=== PATIENT | male | born 1950 | race Caucasian/White ===

== ENCOUNTER 2019-10-15 12:42 | Emergency (ER) | payer OTHER, MEDICARE, BC ==
[2019-10-15] MEDS ORDERED: FENTANYL CITRATE INJ/PF 100 MCG/2 ML AMPUL IM ONE ×2 (12:45→14:00)
[2019-10-15] MEDS ORDERED: ONDANSETRON HCL INJ/PF 4 MG/2 ML SDV IV ONE ×3 (12:45→17:28)
[2019-10-15] MEDS ORDERED: KETOROLAC TROMETHAMINE INJ/PF 30 MG/1 ML SDV IV ONE ×2 (12:45→14:00)
[2019-10-15] MEDS ORDERED: NORMAL SALINE 1000 ML 1,000 ML IV ONE (12:45)
--- NOTE | 2019-10-15 12:47 | ER Document Report ---
ED Medical Screen (RME) - General Chief Complaint: Flank Pain Stated Complaint: FLANK PAIN, BACK PAIN Time Seen by Provider: 10/15/19 12:44 - HPI Notes: 10/15/19 12:45 I had to go outside to help assist patient into wheelchair and into the emergency department. Patient is complaining of severe right flank pain that radiates around to his right lower abdomen that began 2 days ago. He does have associated nausea and vomiting. Patient states that the pain did go away, but returned. Denies drug allergies. No fever, chest pain, shortness of breath. I have treated and performed a rapid initial assessment of this patient. A comprehensive ED assessment and evaluation of the patient, analysis of test results and completion of medical decision making process will be conducted by additional ED providers. Toradol to be given after CT imaging. PHYSICAL EXAMINATION: GENERAL: No acute respiratory distress. Patient is unable to sit still and is holding his right flank in the wheelchair and tearful. Abdomen/back: Limited exam in triage, tenderness noted right lower abdomen into the right flank/low back area.
[2019-10-15] MEDS ORDERED: HYDROMORPHONE HCL INJ/PF 2 MG/ML AMPULE IV ONE (12:52)
--- NOTE | 2019-10-15 13:04 | ER Document Report ---
ED GI/ - General Chief Complaint: Flank Pain Stated Complaint: FLANK PAIN, BACK PAIN Time Seen by Provider: 10/15/19 12:44 Primary Care Provider: JUNE GUAJARDO MD [NO LOCAL MD] - Follow up tomorrow Information source: Patient Notes: Patient presents with right flank pain that radiates to the right side abdomen for the past 2 days. Patient does state that the pain makes him nauseous and banerjee s had vomiting. Patient denies any fever. Patient denies any previous history of kidney stones. - HPI Patient complains to provider of: Abdominal pain, Flank pain Onset: Yesterday Timing/Duration: Worse Quality of pain: Sharp Pain Level: 5 Location: RLQ, Right flank Associated symptoms: Nausea, Vomiting. denies: Dysuria, Fever, Urinary hesitancy, Urinary frequency, Urinary retention, Urinary urgency Exacerbated by: Denies Relieved by: Denies Similar symptoms previously: No Recently seen / treated by doctor: No - Related Data Allergies/Adverse Reactions: No Known Allergies Allergy (Unverified 10/15/19 14:03) Past Medical History - General Information source: Patient - Social History Smoking Status: Never Smoker Frequency of alcohol use: None Drug Abuse: None Occupation: None Lives with: Spouse/Significant other Family History: Reviewed & Not Pertinent - Past Medical History Cardiac Medical History: Reports: Hx Hypercholesterolemia, Hx Hypertension GI Medical History: Reports: Hx Gastroesophageal Reflux Disease Surgical Hx: Negative Review of Systems - Review of Systems Constitutional: No symptoms reported. denies: Fever, Recent illness EENT: No symptoms reported Cardiovascular: No symptoms reported Respiratory: No symptoms reported Gastrointestinal: Abdominal pain, Nausea, Vomiting. denies: Diarrhea Genitourinary: Flank pain Male Genitourinary: No symptoms reported Musculoskeletal: No symptoms reported Skin: No symptoms reported Hematologic/Lymphatic: No symptoms reported Neurological/Psychological: No symptoms reported Physical Exam - Vital signs Vitals: Temp Pulse Resp BP Pulse Ox 97.5 F 91 28 H 158/83 H 98 10/15/19 12:56 10/15/19 12:56 10/15/19 12:56 10/15/19 12:56 10/15/19 12:56 - General General appearance: Alert, Anxious In distress: Moderate - HEENT Head: Normocephalic, Atraumatic Eyes: Normal Nasal: Normal Mouth/Lips: Normal Neck: Normal, Supple - Respiratory Respiratory status: No respiratory distress Chest status: Nontender Breath sounds: Normal. No: Rales, Rhonchi, Stridor, Wheezing Chest palpation: Normal - Cardiovascular Rhythm: Regular Heart sounds: S1 appreciated, S2 appreciated - Abdominal Inspection: Normal Distension: No distension Tenderness: Tender - right side. No: McBurney's point Organomegaly: No organomegaly - Back Back: CVA tenderness - right - Extremities General upper extremity: Normal inspection, Normal strength General lower extremity: Normal inspection, Normal strength - Neurological Neuro grossly intact: Yes Cognition: Normal [place] Coma Scale Eye Opening: Spontaneous [place] Coma Scale Verbal: Oriented [place] Coma Scale Motor: Obeys Commands [place] Coma Scale Total: 15 - Psychological Associated symptoms: Normal affect, Normal mood - Skin Skin Temperature: Warm Skin Moisture: Dry Skin Color: Normal Course - Re-evaluation Re-evalutation: 10/15/19 15:44 Patient with 8 mm ureteral stone on the right side. Patient advised that this is of a significant size that he will likely not be able to pass and will need to have urology follow-up. Patient encouraged to call the urology office [facility] for follow-up appointment. Patient without any fever, leukocytosis, UTI or impaired renal function at this time. Discussed with patient at length worsening symptoms that he should return immediately for including fever, vomiting, uncontrollable pain, any signs of infection or other worrisome symptoms. Patient is agreeable with discharge at this time and verbalized understanding instructions. Patient's at bedside as well who verbalized understanding of instructions. Patient advised that he will need some type of intervention to help with his stone and that this needs to be done in a timely manner although does not require emergent transfer tonight. 10/15/19 16:00 Patient reports that pain has started to return and would like additional medication at this time. 10/15/19 17:27 Patient states that pain continues and he is nauseated at this time. Patient is being difficulty managing pain symptoms at this time. Call placed to [facility] for consultation with urology. 10/15/19 17:[address] Guajardo who is on for urology at [facility] who recommends giving patient IV acetaminophen and pain and a KUB to help guide treatment as to whether or not he may be a lithotripsy candidate. Dr. Guajardo would like to have patient evaluated in his office at 9 AM tomorrow if patient is comfortable with discharge. If patient's pain is not improved after the IV acetaminophen then we can call back and he consider transfer at that time. 10/15/19 18:51 RN states that patient initially refused the IV acetaminophen but is now agreeable. Medication has been reordered at this time. - Vital Signs Vital signs: Temp Pulse Resp BP Pulse Ox 98.3 F 93 16 145/79 H 93 10/15/19 19:28 10/15/19 19:28 10/15/19 19:28 10/15/19 19:28 10/15/19 19:28 - Laboratory Result Diagrams: 10/15/19 13:20 10/15/19 13:20 Laboratory results interpreted by me: 10/15/19 10/15/19 10/15/19 13:20 13:20 14:50 RDW 14.3 H Est GFR (MDRD) Non-Af 59 L Glucose 127 H Total Bilirubin 2.0 H Urine Protein 30 H Urine Ketones 20 H Urine Blood LARGE H Labs- Entire Visit 10/15/19 10/15/19 10/15/19 13:20 13:20 14:50 WBC 8.1 RBC 5.41 Hgb 16.0 Hct 45.5 MCV 84 MCH 29.6 MCHC 35.1 RDW 14.3 H Plt Count 278 Lymph % (Auto) 26.9 [place] % (Auto) 7.3 Eos % (Auto) 1.7 Baso % (Auto) 0.5 Absolute Neuts (auto) 5.1 Absolute Lymphs (auto) 2.2 Absolute Monos (auto) 0.6 Absolute Eos (auto) 0.1 Absolute Basos (auto) 0.0 Seg Neutrophils % 63.6 Sodium 143.1 Potassium 4.0 Chloride 102 Carbon Dioxide 25 Anion Gap 16 BUN 20 Creatinine 1.23 Est GFR ( Amer) > 60 Est GFR (MDRD) Non-Af 59 L Glucose 127 H Calcium 9.7 Total Bilirubin 2.0 H Direct Bilirubin 0.1 Neonat Total Bilirubin Not Reportable Neonat Direct Bilirubin Not Reportable Neonat Indirect Bili Not Reportable AST 27 ALT 30 Alkaline Phosphatase 65 Total Protein 7.9 Albumin 4.8 Lipase 98.4 Urine Color ZULEYMA Urine Appearance SLIGHTLY-CLOUDY Urine pH 6.0 Ur Specific [place] 1.024 Urine Protein 30 H Urine Glucose (UA) NEGATIVE Urine Ketones 20 H Urine Blood LARGE H Urine Nitrite (Reflex) NEGATIVE Urine Bilirubin NEGATIVE Urine Urobilinogen NEGATIVE Leukocyte Esterase Rfl NEGATIVE Urine RBC (Auto) 176 Squamous Epi Cells Auto <1 Urine Mucus (Auto) MANY Urine Ascorbic Acid NEGATIVE - Diagnostic Test Radiology reviewed: Reports reviewed Discharge - Discharge Clinical Impression: Flank pain, Ureteral stone Condition: Stable Disposition: HOME, SELF-CARE Additional Instructions: Return immediately for any new or worsening symptoms: Fever, vomiting, uncontrollable pain or any concerning symptoms Follow-up with urology tomorrow in his [place] office at 9 am. Let office staff note that we spoke with urologist over the phone and you were given this time slot verbally. KIDNEY STONE: You are passing or have passed a kidney stone. These stones are usually due to increased calcium or uric acid concentrations in your urine. Stones within the kidney itself are not painful. The pain occurs as the stone leaves the kidney to pass down the long tube, called the ureter, leading to the bladder. If the stone is small, it will usually pass by itself. Most patients can pass the stone at home. You will usually receive medications for pain, nausea or vomiting, and sometimes a medication to assist in passing the kidney stone. However, if the pain is very severe or if vomiting prevents you from taking oral pain medications, you may need to return for further treatment. Drink three or four quarts of fluids per day. You will be given pain medication (if needed) and urine strainers. Strain all your urine to see if the stone passes. If your doctor has asked you to bring the stone in for analysis, return with the stone once it has passed. Return if pain or vomiting become severe, if you develop a high fever, if you are unable to pass your urine, or if other unusual symptoms occur. TORADOL INJECTION: You have been given an injection of ketorolac tromethamine (Toradol). This is an excellent, safe drug for pain control. It also has potent antiinfla mmatory action. You should have significant pain relief within about one hour. Toradol is not addicting and is non-sedating. It does not interfere with driving or work. Call or return if you develop itching, hives, shortness of breath, or rash. PAIN MEDICATION INJECTION: You have received an injection of a pain medication. You should experience significant pain relief within 45 minutes. This drug is a narcotic -- it will impair your judgement, slow your reaction time and make you sleepy (as well as relieve your pain). Narcotics also can cause nausea. You should not drive, work with machinery, or perform any task requiring mental alertness until all effects of the medication are gone -- six to eight hours. Do not take any alcohol, or sedatives, and do not take any other medication without checking with your physician. ANTINAUSEA MEDICATION: You have been given a medication to suppress nausea and vomiting. This type of medication can be given as a shot, pill, or suppository. It will usually last for many hours. Pills and shots usually last six to eight hours, suppositories last about 12 hours. For the typical illness, only one or two doses of the medication may be necessary. Mild lightheadedness may occur. This type of medicine can cause d rowsiness. Do not drive or operate dangerous machinery while under its influence. Do not mix with alcohol. See your doctor at once if you have muscle spasms or tightness, or uncontrollable motions (particularly of the neck, mouth, or jaw). Persistent vomiting or severe lightheadedness should also be evaluated by the physician. ORAL NARCOTIC MEDICATION: You have been given a prescription for pain control. This medication is a narcotic. It's best taken with food, as nausea can result if taken on an empty stomach. Don't operate machinery or drive within six hours of taking this medication. Do not combine this medicine with alcohol, or with any medication which can cause sedation (such as cold tablets or sleeping pills) unless you get permission from the physician. Narcotics tend to cause constipation. If possible, drink plenty of fluids and eat a diet high in fiber and fruits. Please be aware that prescription narcotics also have the potential for abuse. People become addicted to these medications because of the general sense of wellbeing that they induce. This feeling along with a significant reduction in tension, anxiety, and aggression provides a stimulating seductive quality to these drugs. Once your pain is under control, we encourage you to discard your unused narcotics. FLOMAX (tamsulosin): Flomax is a medicine that shrinks the prostate gland. It helps relieve symptoms of benign prostatic hypertrophy, such as frequent urination, weak stream, and inadequate emptying. It has been shown to dilate the ureter (tube leading from the kidney to the bladder) and help in passing kidney stones Flomax usually causes no side effects. You may notice slight tiredness and dizziness for a few days. Some patients develop nasal congestion. Rarely, impotence can occur. If the symptoms are bothersome and don't improve with continued use, call your doctor. Contact your doctor or return if you have fainting spells, severe weakness or dizziness, shortness of breath, or rash. FOLLOW-UP CARE: If you have been referred to a physician for follow-up care, call the physicians office for an appointment as you were instructed or within the next two days. If you experience worsening or a significant change in your symptoms, notify the physician immediately or return to the Emergency Department at any time for re-evaluation. Prescriptions: Oxycodone HCl/Acetaminophen [Percocet 5-325 mg Tablet] 1 tab PO ASDIR PRN #20 tablet PRN Reason: Ondansetron HCl [Zofran 4 mg Tablet] 1 - 2 tab PO Q6 PRN #15 tablet PRN Reason: Referrals: JUNE GUAJARDO MD [NO LOCAL MD] - Follow up tomorrow
[2019-10-15] MEDS ORDERED: ONDANSETRON HCL INJ/PF 4 MG/2 ML SDV ONE ×2 (13:14→13:16)
[2019-10-15 13:44] LABS: ABSOLUTE EOSINOPHILS # (AUTO) 0.1 10^3/uL (0.0-0.6); ABSOLUTE LYMPHOCYTES (AUTO) 2.2 10^3/uL (0.5-4.7); ABSOLUTE MONOCYTES (AUTO) 0.6 10^3/uL (0.1-1.4); ABSOLUTE NEUT (AUTO) 5.1 10^3/uL (1.7-8.2); BASOPHILS % (AUTO) 0.5 % (0-2); EOSINOPHILS % (AUTO) 1.7 % (0-6); HEMATOCRIT 45.5 % (37.9-51.0); LYMPHOCYTES % (AUTO) 26.9 % (13-45); MEAN CORPUSCULAR HEMOGLOBIN 29.6 pg (27.0-33.4); MEAN CORPUSCULAR HGB CONC 35.1 g/dL (32.0-36.0); MEAN CORPUSCULAR VOLUME 84 fl (80-97); MONOCYTES % (AUTO) 7.3 % (3-13); PLATELET COUNT 278 10^3/uL (150-450); RED BLOOD COUNT 5.41 10^6/uL (4.35-5.55); RED CELL DISTRIBUTION WIDTH 14.3 % (11.5-14.0); SEGMENTED NEUTROPHILS % (AUTO) 63.6 % (42-78); TOTAL CELLS COUNTED % (AUTO) 100 %; WHITE BLOOD COUNT 8.1 10^3/uL (4.0-10.5)
--- NOTE | 2019-10-15 13:46 | RADIOLOGY REPORT (SQ) ---
EXAM DESCRIPTION: CT ABD/PELVIS NO ORAL OR IV COMPLETED DATE/TIME: 10/15/2019 1:26 pm REASON FOR STUDY: severe rt flank pain COMPARISON: None. TECHNIQUE: CT scan of the abdomen and pelvis performed without intravenous or oral contrast. Images reviewed with lung, soft tissue, and bone windows. Reconstructed coronal and sagittal MPR images revi ewed. All images stored on PACS. All CT scanners at this facility use dose modulation, iterative reconstruction, and/or weight based d osing when appropriate to reduce radiation dose to as low as reasonably achievable (ALARA). [facility]: Dose Right [facility]: CareDose [facility]: Dose Right [facility]: Teradose 4D [facility]: [employer] RADIATION DOSE: CT Rad equipment meets quality standard of care and radiation dose reduction techniq ues were employed. CTDIvol: 10.6 mGy. DLP: 611 mGy-cm.mGy. LIMITATIONS: None. FINDINGS: LOWER CHEST: Hiatal hernia. NON-CONTRASTED LIVER, SPLEEN, ADRENALS: Evaluation limited by lack of IV contrast. No identified sign ificant masses. PANCREAS: No masses. No peripancreatic inflammatory changes. GALLBLADDER: No identified stones by CT criteria. No inflammatory changes to suggest cholecystitis. RIGHT KIDNEY AND URETER: No suspicious masses. Assessment limited by lack of IV contrast. 8 mm maxi mum diameter right ureteral calculus at the level of L3- 4. This measures approximately 1,200 HU. Mild hydronephrosis. LEFT KIDNEY AND URETER: No suspicious masses. Assessment limited by lack of IV contrast. No signifi cant calcifications. No hydronephrosis or hydroureter. AORTA AND RETROPERITONEUM: No aneurysm. No retroperitoneal masses or adenopathy. BOWEL AND PERITONEAL CAVITY: Sigmoid diverticulosis. No obvious masses or inflammatory changes. No f ree fluid. APPENDIX: Normal. PELVIS, BLADDER, AND ABDOMINAL WALL:No abnormal masses. No free fluid. Bladder normal. BONES: No significant findings. OTHER: No other significant finding. IMPRESSION: 8 mm stone right ureter. Mild hydronephrosis. COMMENT: Quality ID # [id number]: Final reports with documentation of one or more dose reduction techniques (e.g., Automated exposure control, adjustment of the mA and/or kV according to patient size, use of iterative reconstruction technique) TECHNICAL DOCUMENTATION: JOB ID: [id number] [employer]- All Rights Reserved Reading location - IP/workstation name: [email or web address]
[2019-10-15 14:04] LABS: ALBUMIN 4.8 g/dL (3.5-5.0); ALKALINE PHOSPHATASE 65 U/L (38-126); ANION GAP 16 (5-19); ASPARTATE AMINO TRANSFERASE 27 U/L (17-59); BILIRUBIN,DIRECT 0.1 mg/dL (0.0-0.4); BLOOD UREA NITROGEN 20 mg/dL (7-20); CALCIUM 9.7 mg/dL (8.4-10.2); CARBON DIOXIDE 25 mmol/L (22-30); CHLORIDE 102 mmol/L (98-107); GLUCOSE 127 mg/dL (75-110); TOTAL PROTEIN 7.9 g/dL (6.3-8.2)
[2019-10-15 15:12] LABS: APPEARANCE,URINE SLIGHTLY-CLOUDY; BILIRUBIN,URINE NEGATIVE (NEGATIVE); COLOR,URINE AMBER; GLUCOSE, URINE NEGATIVE (NEGATIVE); KETONES,URINE 20 mg/dL (NEGATIVE); PROTEIN,URINE 30 mg/dL (NEGATIVE); URINE SPECIFIC GRAVITY 1.024; UROBILINOGEN,URINE NEGATIVE mg/dL (<2.0)
[2019-10-15] MEDS ORDERED: MORPHINE SULFATE 10 MG/ML INJ IV ONE (16:05)
[2019-10-15] MEDS ORDERED: ACETAMINOPHEN 1,000 MG/100 ML RTUPB IV ONE ×2 (17:55→18:50)
[2019-10-15] MEDS ORDERED: DIPHENHYDRAMINE HCL 50 MG/ML VIAL IV ONE (18:30)
--- NOTE | 2019-10-15 19:07 | RADIOLOGY REPORT (SQ) ---
EXAM DESCRIPTION: KUB/ABDOMEN (SINGLE VIEW) COMPLETED DATE/TIME: 10/15/2019 6:50 pm REASON FOR STUDY: eval stone, ? Radiopaque COMPARISON: None. NUMBER OF VIEWS: One view. TECHNIQUE: Supine radiographic image of the abdomen acquired. LIMITATIONS: None. FINDINGS: BOWEL GAS PATTERN: Normal bowel gas pattern. No dilated loops. CALCIFICATIONS: There is a 6 x 10 mm calcification just above the right transverse process of L4. SOFT TISSUES: No gross mass or suggestion of organomegaly. HARDWARE: None in the abdomen. BONES: No acute fracture. No worrisome bone lesions. OTHER: No other significant finding. IMPRESSION: Right ureteral calculus. This has moved slightly since the CT of 10/15/2019 TECHNICAL DOCUMENTATION: JOB ID: [id number] [employer]- All Rights Reserved Reading location - IP/workstation name: [email or web address]
[2019-10-15 19:37] VITALS: BP 145/79
== END 2019-10-15 19:36 | disposition home or self-care (01) ==
LOC: ER 12:42
DX: N13.2 Hydronephrosis with renal and ureteral calculous obstruction (principal); R11.2 Nausea with vomiting, unspecified; R10.31 Right lower quadrant pain; R10.9 Unspecified abdominal pain; I10 Essential (primary) hypertension; Z87.19 Personal history of other diseases of the digestive system
CPT/HCPCS: 96376; 99284; 96361; 96375; 96365; 36415; 87086; 83690; 85025; 80053; 81001; 74018; 74176; J1200; J1885; J2270; J1170; J2405; J7030; J0131

== ENCOUNTER → 2019-11-09 | Outpatient (CLI) | payer MEDICARE, BC ==
--- NOTE | 2019-11-09 14:11 | RADIOLOGY REPORT (SQ) ---
EXAM DESCRIPTION: KUB/ABDOMEN (SINGLE VIEW) COMPLETED DATE/TIME: 11/09/2019 1:54 pm REASON FOR STUDY: KIDNEY STONES (N20.0) N20.0 CALCULUS OF KIDNEY COMPARISON: 10/15/2019 NUMBER OF VIEWS: One view. TECHNIQUE: Supine radiographic image of the abdomen acquired. LIMITATIONS: None. FINDINGS: BOWEL GAS PATTERN: Normal bowel gas pattern. No dilated loops. CALCIFICATIONS: No suspicious calcifications. SOFT TISSUES: No gross mass or suggestion of organomegaly. HARDWARE: Right double-J ureteral stent is in place. BONES: No acute fracture. No worrisome bone lesions. OTHER: No other significant finding. IMPRESSION: Previously described calcification adjacent to the L4 vertebral body is no longer identi fied. Right double-J ureteral stent is in place. TECHNICAL DOCUMENTATION: JOB ID: [id number] [employer]- All Rights Reserved Reading location - IP/workstation name: [email or web address]
== END ==
LOC: RAD 11:15
PROVIDERS: ATTEND Urology
DX: N20.0 Calculus of kidney (principal)
CPT/HCPCS: 74018